=== PATIENT | male | born 1945 | race Caucasian/White ===

== ENCOUNTER → 2020-09-14 08:32 | Outpatient (CLI) | payer OTHER | END | disposition home or self-care (01) | LOC: D.LAB 08:32 | PROVIDERS: ATTEND Internal Medicine Pulmonary Disease | DX: Z11.52 Encounter for screening for COVID-19 (principal) ==

== ENCOUNTER → 2020-09-19 08:22 | Outpatient (CLI) | payer OTHER | END | disposition home or self-care (01) | LOC: D.RT 08:22 | PROVIDERS: ATTEND Internal Medicine Pulmonary Disease | DX: R06.09 Other forms of dyspnea (principal) ==